=== PATIENT | male | born 1965 | race Caucasian/White ===

== ENCOUNTER 2017-01-20 09:57 | Emergency (ER) | payer OTHER ==
[2017-01-20 10:03] VITALS: BP 183/86; PULSE 68; TEMP 97.9; BMI 25.7
[2017-01-20] MEDS ORDERED: IBUPROFEN 600 MG TABLET (FP) PO ONE ×2 (10:48→10:57)
--- NOTE | 2017-01-20 10:49 | PDOC ---
History of Present Illness - General Chief Complaint: Back Pain Stated Complaint: PAIN/ RT SHOULDER, PAIN, BACK Time Seen by Provider: 01/20/17 10:47 History Source: Patient Exam Limitations: No Limitations - History of Present Illness Initial Comments: 01/20/17 10:30 3 months ago patient sustained a fall on some stairs, was evaluated at another hospital where he has x-rayed and noted to have multiple rib fractures but no spine pathology. Patient states had a sore back and lower back pain with radiating pain to right buttock since injury. Denies numbness or tingling to hands or feet, denies any problems with bowel or bladder. Has used ibuprofen for pain relief with minimal relief. Patient has not sought attention for this chronic back pain and did not declare is Workmen's Comp. injury. 01/20/17 11:30 01/20/17 11:32 01/20/17 17:24 Occurred: reports: other Severity: reports: moderate Modifying Factors: improves with: None Associated Symptoms (Fall): denies symptoms Past History - Travel Traveled outside of the country in the last 30 days: No Close contact w/someone who was outside of country & ill: No - Past Medical History Allergies/Adverse Reactions: Allergies Allergy/AdvReac Type Severity Reaction Status Date / Time No Known Allergies Allergy Verified 01/20/17 10:00 Home Medications: Ambulatory Orders Olmesartan Medoxomil [Benicar -] 10 mg PO DAILY 06/20/14 Lisinopril [Prinivil] 10 mg PO DAILY 02/14/15 Cyclobenzaprine HCl [Flexeril 10 mg] 10 mg PO BID PRN #14 tablet 01/20/17 Anemia: No Asthma: No Cancer: No Cardiac Disorders: No CVA: No COPD: No CHF: No Dementia: No Diabetes: No GI Disorders: Yes (ACID REFLUX) Disorders: No HTN: Yes Hypercholesterolemia: Yes Liver Disease: No Seizures: No Thyroid Disease: No - Surgical History Abdominal Surgery: Yes (RT HERNIA REPAIR CHILD) - Psycho/Social/Smoking Cessation Hx Anxiety: No Suicidal Ideation: No Smoking History: Never smoked Have you smoked in the past 12 months: No If you are a former smoker, when did you quit?: 15 YRS AGO Information on smoking cessation initiated: No Hx Alcohol Use: No Drug/Substance Use Hx: No Substance Use Type: None Hx Substance Use Treatment: No Trauma Specific PMHX - Complaint Specific PMHX Back Injury: Yes Neck Injury: No Review of Systems - Review of Systems Able to Perform ROS?: Yes Is the patient limited Fijian proficient: Yes Constitutional: Yes: Symptoms Reported, See HPI HEENTM: No: Symptoms Reported Musculoskeletal: Yes: Symptoms Reported, See HPI, Back Pain, Muscle Pain All Other Systems: Reviewed and Negative *Physical Exam - Vital Signs Last Vital Signs Temp Pulse Resp BP Pulse Ox 97.9 F 68 18 183/86 100 01/20/17 10:01 01/20/17 10:01 01/20/17 10:01/20/17 10:01/20/17 10:01 - Physical Exam General Appearance: Yes: Appropriately Dressed HEENT: positive: CHAO, Normal ENT Inspection, TMs Normal, Pharynx Normal Neck: positive: Supple. negative: Lymphadenopathy (R), Lymphadenopathy (L) Respiratory/Chest: positive: Lungs Clear, Normal Breath Sounds Musculoskeletal: positive: Normal Inspection, Decreased Range of Motion, Vertebral Tenderness (mild ). negative: CVA Tenderness (L) Extremity: positive: Normal Capillary Refill, Normal Inspection, Normal Range of Motion (walks with limp) Integumentary: positive: Normal Color, Dry, Warm Neurologic: positive: technical rep II-XII NML intact, Fully Oriented, Alert, Normal Mood/ Affect, Normal Response, Motor Strength 5/5 ED Treatment Course - RADIOLOGY Radiology Studies Ordered: Category Date Time Status SPINE-LUMBAR SACRAL [RAD] Stat Radiology 01/20/17 10:48 Ordered Progress Note - Progress Note Progress Note: X-ray negative for fracture or dislocation, will treat with NSAIDs and cyclobenzaprine and have follow up with PMD *DC/Admit/Observation/Transfer Diagnosis at time of Disposition: Chronic back pain Qualifiers: Back pain location: low back pain Back pain laterality: unspecified Sciatica presence: with sciatica Sciatica laterality: sciatica of right side Qualified Code(s): M54.41 - Lumbago with sciatica, right side - Discharge Dispostion Disposition: HOME Condition at time of disposition: Stable Admit: No - Prescriptions Prescriptions: Cyclobenzaprine HCl [Flexeril 10 mg] 10 mg PO BID PRN #14 tablet PRN Reason: spasm - Referrals Referrals: Carisa Falk MD [Primary Care Provider] - Miah Williamson MD [Staff Physician] - - Patient Instructions Printed Discharge Instructions: DI for Back Strain or Sprain Additional Instructions: Rest, no heavy lifting or exercise until pain is resolved Hot soaks to neck and low back as often as possible/hot showers or Jacuzzis No massage or therapy until spasm is gone Continue ibuprofen 2-200 mg tablets every 6 hours for the next 3 days then as needed for pain and swelling Cyclobenzaprine 1-10mg every 8 hours as needed for spasm If not significant improvement within 24 hours with medication and rest regime, followup with private physician for change in medications and /or therapy. - Post Discharge Activity Work/School Note: Back to Work
[2017-01-20] MEDS ORDERED: BACITRACIN 15 GM TUBE TOPICAL OINTMENT ONE (12:08)
== END 2017-01-20 12:20 | disposition home or self-care (01) ==
LOC: JERFT 09:57
DX: M54.41 Lumbago with sciatica, right side (principal); I10 Essential (primary) hypertension; E78.00 Pure hypercholesterolemia, unspecified; K21.9 Gastro-esophageal reflux disease without esophagitis; Z91.81 History of falling; Z87.828 Personal history of other (healed) physical injury and trauma
CPT/HCPCS: 72100-TC; 99281-25

== ENCOUNTER 2018-02-12 11:13 | Emergency (ER) | payer OTHER ==
[2018-02-12 11:24] VITALS: TEMP 97.5; BMI 26.4
--- NOTE | 2018-02-12 11:25 | PDOC ---
History of Present Illness - General Chief Complaint: Carbon Monoxide Exposure Stated Complaint: CHEMICAL EXPOSURE Time Seen by Provider: 02/12/18 11:25 History Source: Patient Exam Limitations: No Limitations - History of Present Illness Initial Comments: 02/12/18 11:43 Patient is a 53-year-old male with past medical history of who presents to the emergency department today after being exposed to chemicals at work. Patient believes that it was a furniture lacquer. He states that when he walks and was building the smell was overwhelming. He states in the building for approximately 2 hours. His neighbor in the building came to get him. He states that as they were exiting the building he slipped down one or 2 stairs. After he exited the building he states that he felt very dizzy and had a headache and he threw up. After moving into the air he started to feel better. He states that he still has a headache at this time. TISHA was on scene and told medics that there was no CO2 reading or natural gas reading. Past History - Travel Traveled outside of the country in the last 30 days: No Close contact w/someone who was outside of country & ill: No - Past Medical History Allergies/Adverse Reactions: Allergies Allergy/AdvReac Type Severity Reaction Status Date / Time No Known Allergies Allergy Verified 02/12/18 11:24 Home Medications: Ambulatory Orders Cyclobenzaprine HCl [Flexeril -] 10 mg PO HS #10 tablet 02/12/18 Ibuprofen 800 mg PO TID #30 tablet 02/12/18 Anemia: No Asthma: No Cancer: No Cardiac Disorders: No CVA: No COPD: No CHF: No Dementia: No Diabetes: No GI Disorders: Yes (ACID REFLUX) Disorders: No HTN: Yes Hypercholesterolemia: Yes Liver Disease: No Seizures: No Thyroid Disease: No - Surgical History Abdominal Surgery: Yes (RT HERNIA REPAIR CHILD) - Suicide/Smoking/Psychosocial Hx Smoking History: Never smoked Have you smoked in the past 12 months: No If you are a former smoker, when did you quit?: 15 YRS AGO Hx Alcohol Use: No Drug/Substance Use Hx: No Substance Use Type: None Hx Substance Use Treatment: No Review of Systems - Review of Systems Able to Perform ROS?: Yes Comments:: 02/12/18 11:43 CONSTITUTIONAL: Absent: fever, chills, diaphoresis, generalized weakness, malaise, loss of appetite HEENT: Absent: rhinorrhea, nasal congestion, throat pain, throat swelling, difficulty swallowing, mouth swelling, ear pain, eye pain, visual Changes CARDIOVASCULAR: Absent: chest pain, loss of consciousness, palpitations, irregular heart rate, peripheral edema RESPIRATORY: Absent: cough, shortness of breath, dyspnea with exertion, orthopnea, wheezing, stridor, hemoptysis GASTROINTESTINAL: Absent: abdominal pain, abdominal distension, nausea, vomiting, diarrhea, constipation, melena, hematochezia GENITOURINARY: Absent: dysuria, frequency, urgency, hesitancy, hematuria, flank pain, genital pain MUSCULOSKELETAL: Absent: myalgia, arthralgia, joint swelling SKIN: Absent: rash, itching, pallor HEMATOLOGIC/IMMUNOLOGIC: Absent: easy bleeding, easy bruising, lymphadenopathy, frequent infections ENDOCRINE: Absent: unexplained weight gain, unexplained weight loss, heat intolerance, cold intolerance NEUROLOGIC: Absent: headache, focal weakness or paresthesias, dizziness, unsteady gait, seizure, mental status changes, bladder or bowel incontinence PSYCHIATRIC: Absent: anxiety, depression, suicidal or homicidal ideation, hallucinations. Is the patient limited Namibian proficient: No *Physical Exam - Vital Signs Last Vital Signs Temp Pulse Resp BP Pulse Ox 97.5 F L 97 H 20 149/95 96 02/12/18 11:19 02/12/18 11:19 02/12/18 11:19 02/12/18 11:19 02/12/18 11:19 - Physical Exam Comments: 02/12/18 11:43 GENERAL: Well developed, well nourished. Awake and alert. No acute distress. HEENT: Normocephalic, atraumatic. PERRLA, EOMI. No conjunctival pallor. Sclera are non- icteric. Moist mucous membranes. Oropharynx is clear. NECK: Supple. Full ROM. No JVD. Carotid pulses 2+ and symmetric, without bruits. No thyromegaly. No lymphadenopathy. CARDIOVASCULAR: Regular rate and rhythm. No murmurs, rubs, or gallops. Distal pulses are 2+ and symmetric. PULMONARY: No evidence of respiratory distress. Lungs clear to auscultation bilaterally. No wheezing, rales or rhonchi. ABDOMINAL: Soft. Non-tender. Non-distended. No rebound or guarding. No organomegaly. Normoactive bowel sounds. MUSCULOSKELETAL Normal range of motion at all joints. No bony deformities or tenderness. No CVA tenderness. EXTREMITIES: No cyanosis. No clubbing. No edema. No calf tenderness. SKIN: Warm and dry. Normal capillary refill. No rashes. No jaundice. NEUROLOGICAL: Alert, awake, appropriate. Cranial nerves 2-12 intact. No deficits to light touch and temperature in face, upper extremities and lower extremities. No motor deficits in the in face, upper extremities and lower extremities. Normoreflexic in the upper and lower extremities. Normal speech. Toes are down- going bilaterally. Gait is normal without ataxia. PSYCHIATRIC: Cooperative. Good eye contact. Appropriate mood and affect. ED Treatment Course - LABORATORY CBC & Chemistry Diagram: 02/12/18 11:50 02/12/18 11:50 Medical Decision Making - Medical Decision Making 02/12/18 14:49 Pt. reports feeling better after relaxing in bed. States headache has resolved with reglan bendaryl and fluids. X-ray is negative for fracture at this time. Will dc home with PCP follow up. *DC/Admit/Observation/Transfer Diagnosis at time of Disposition: Exposure to chemical inhalation - Discharge Dispostion Disposition: HOME Condition at time of disposition: Stable Decision to Admit order: No - Referrals Referrals: Carisa Falk MD [Primary Care Provider] - - Patient Instructions Additional Instructions: You were evaluated for exposure to paint fumes this morning. Your lab work and urine was normal. Your x-ray is negative for fracture You most likely have back pain from falling down the step. Take the motrin and flexeril as prescribed. Do not drive after taking the flexeril as it may make you sleepy. Do not go back to the facility until cleared by the fire department. Drink plenty of fluids Follow up with your primary care doctor tomorrow. Return to the ED if you have worsening lightheadedness, headaches, fevers, difficulty breathing or if you have any changes in your symptoms. - Post Discharge Activity Forms/Work/School Notes: Back to Work
[2018-02-12] MEDS ORDERED: METOCLOPRAMIDE HCL INJECTION 10 MG/2 ML VIAL IVPB ONE (11:45)
[2018-02-12] MEDS ORDERED: SODIUM CHLORIDE 1,000 ML IV STA (11:46)
[2018-02-12] MEDS ORDERED: METOCLOPRAMIDE HCL INJECTION 10 MG/2 ML VIAL ONE (11:57)
[2018-02-12 11:59] LABS: BASO % 0.7 % (0-2.0); EOS % 2.3 % (0-4.5); HEMATOCRIT 43.9 % (35.4-49); MCH 29.9 pg (25.7-33.7); MCHC 34.1 g/dl (32.0-35.9); MEAN CELL VOLUME 87.5 fl (80-96); MEAN PLT VOLUME 7.7 fl (7.5-11.1); MONO % 14.1 % (3.8-10.2); NEUT % 61.9 % (42.8-82.8); PLATELET COUNT 237 K/MM3 (134-434); RBC 5.01 M/mm3 (4.00-5.60); RDW 13.5 % (11.9-15.9); WHITE BLOOD COUNT 5.9 K/mm3 (4.0-10.0)
[2018-02-12] MEDS ORDERED: diazePAM 5 MG TABLET PO ONE (12:18)
--- NOTE | 2018-02-12 12:20 | PDOC ---
*Physical Exam - Vital Signs Last Vital Signs Temp Pulse Resp BP Pulse Ox 97.5 F L 91 H 20 149/95 99 02/12/18 11:19 02/12/18 11:40 02/12/18 11:19 02/12/18 11:19 02/12/18 11:40 Heart Score/ECG Review - ECG Impressions Comment:: 02/12/18 12:20 Twelve-lead EKG was performed and reviewed by me. There is normal sinus rhythm with a normal rate. Rate of 83 The axis is normal. The intervals are normal. There is normal R wave progression There are no ST or T wave abnormalities. Impression: Normal twelve-lead EKG ED Treatment Course - LABORATORY CBC & Chemistry Diagram: 02/12/18 11:50 02/12/18 11:50 - ADDITIONAL ORDERS Additional order review: 02/12/18 11:50 RBC 5.01 MCV 87.5 MCHC 34.1 RDW 13.5 MPV 7.7 Neutrophils % 61.9 Lymphocytes % 21.0 D Monocytes % 14.1 H Eosinophils % 2.3 D Basophils % 0.7 - Medications Given in the ED: ED Medications Discontinued Medications Generic Name Dose Route Start Last Admin Trade Name Freq PRN Reason Stop Dose Admin Diphenhydramine HCl 12.5 mg 02/12/18 11:46 02/12/18 12:06 Benadryl Injection - IVPUSH 02/12/18 11:47 12.5 mg ONCE ONE Administration Metoclopramide HCl 10 mg 02/12/18 11:45 02/12/18 12:06 Reglan Injection - IVPB 02/12/18 11:46 10 mg ONCE ONE Administration Medical Decision Making - Medical Decision Making 02/13/18 16:51 The patient was seen and evaluated in conjunction with ZHOU Quiñonez under my direct supervision, ancillary studies were reviewed.I agree with the plan as outlined by ZHOU Quiñonez . *DC/Admit/Observation/Transfer Diagnosis at time of Disposition: Exposure to chemical inhalation - Discharge Dispostion Disposition: HOME Condition at time of disposition: Stable - Prescriptions Prescriptions: Cyclobenzaprine HCl [Flexeril -] 10 mg PO HS #10 tablet Ibuprofen 800 mg PO TID #30 tablet - Referrals Referrals: Carisa Falk MD [Primary Care Provider] - - Patient Instructions Additional Instructions: You were evaluated for exposure to paint fumes this morning. Your lab work and urine was normal. Your x-ray is negative for fracture You most likely have back pain from falling down the step. Take the motrin and flexeril as prescribed. Do not drive after taking the flexeril as it may make you sleepy. Do not go back to the facility until cleared by the fire department. Drink plenty of fluids Follow up with your primary care doctor tomorrow. Return to the ED if you have worsening lightheadedness, headaches, fevers, difficulty breathing or if you have any changes in your symptoms. - Post Discharge Activity Forms/Work/School Notes: Back to Work
[2018-02-12] MEDS ORDERED: diazePAM 5 MG TABLET ONE (12:34)
[2018-02-12 12:38] LABS: ALBUMIN 3.8 g/dl (3.4-5.0); ALK PHOS 76 U/L (45-117); ANION GAP 8 (8-16); BILIRUBIN,TOTAL 0.1 mg/dL (0.2-1.0); BLOOD UREA NITROGEN 19 mg/dL (7-18); CALCIUM 9.3 mg/dL (8.5-10.1); CHLORIDE 105 mmol/L (98-107); CO2 29 mmol/L (21-32); CREATININE 0.9 mg/dL (0.7-1.3); GLUCOSE,RANDOM 90 mg/dL (74-106); POTASSIUM 3.9 mmol/L (3.5-5.1); SGOT/AST 14 U/L (15-37); SGPT/ALT 29 U/L (12-78); SODIUM 142 mmol/L (136-145); TOT PROT 6.7 g/dl (6.4-8.2)
[2018-02-12 13:31] LABS: ACANTHOCYTES 0; ANISOCYTOSIS 0; HELMET CELLS 0; HOWELL-JOLLY BODIES 0; MACROCYTOSIS 0; OVALOCYTE 0; PLATELET ESTIMATE NORMAL; ROULEAU 0; SICKELED CELLS 0; TARGET CELLS 0; TEAR DROP CELLS 0; TOXIC GRANULATION 0
[2018-02-12 14:09] LABS: URINE APPEARANCE CLEAR; URINE BILIRUBIN NEGATIVE (<2.0 mg/dL); URINE COLOR STRAW; URINE GLUCOSE (UA) NEGATIVE (NEGATIVE); URINE KETONE NEGATIVE (NEGATIVE); URINE LEUK ESTERASE NEGATIVE (NEGATIVE); URINE NITRITE NEGATIVE (NEGATIVE); URINE PROTEIN NEGATIVE (NEGATIVE); URINE UROBILINOGEN NEGATIVE mg/dL (0.2-1.0)
--- NOTE | 2018-02-12 14:27 | EKG ---
Test Reason : Blood Pressure : / mmHG Vent. Rate : 083 BPM Atrial Rate : 083 BPM P-R Int : 158 ms QRS Dur : 104 ms QT Int : 388 ms P-R-T Axes : 064 048 034 degrees QTc Int : 455 ms NORMAL SINUS RHYTHM NORMAL ECG WHEN COMPARED WITH ECG OF 14-FEB-2015 15:59, NONSPECIFIC T WAVE ABNORMALITY HAS REPLACED INVERTED T WAVES IN INFERIOR LEADS NONSPECIFIC T WAVE ABNORMALITY NO LONGER EVIDENT IN ANTEROLATERAL LEADS Confirmed by SHIRA CALVILLO, SHON ([id number]) on 02/12/2018 2:26:36 PM Referred By: Confirmed By:SHON SILVA MD
[2018-02-12 15:57] VITALS: BP 144/96; PULSE 65
== END 2018-02-12 15:57 | disposition home or self-care (01) ==
LOC: JER 11:13
PROC: 3E033GC Introduction of Other Therapeutic Substance into Peripheral Vein, Percutaneous Approach (ICD-10-PCS; principal; 2018-02-12)
PROC: 3E033GC Introduction of Other Therapeutic Substance into Peripheral Vein, Percutaneous Approach (ICD-10-PCS; 2018-02-12)
DX: T65.6X1A Toxic effect of paints and dyes, not elsewhere classified, accidental (unintentional), initial encounter (principal); Z57.5 Occupational exposure to toxic agents in other industries; Y92.69 Other specified industrial and construction area as the place of occurrence of the external cause
CPT/HCPCS: 36415; 71045-TC-FY; 73590-TC-RT-FY; 80053; 81003; 85025; 93005; 93010; 99284-25; J7030